=== PATIENT | female | born 1945 | race Caucasian/White ===

== ENCOUNTER 2018-11-13 12:22 | Emergency (ER) | payer OTHER ==
[2018-11-13 12:50] VITALS: BP 159/89; PULSE 51; TEMP 97.4; BMI 24.1
--- NOTE | 2018-11-13 12:54 | PDOC ---
Attending Attestation - Resident Resident Name: MaycolAlanna - ED Attending Attestation I have performed the following: I have examined & evaluated the patient, The case was reviewed & discussed with the resident, I agree w/resident's findings & plan, Exceptions are as noted - HPI HPI: 11/13/18 12:53 72y F presents with insect bites, she was walking and may have stepped onto a hive of some sort, was stung by an flying insect. Pt endorses feeling lightheaded initially and a stinging pain to the sites. denie sany sob, wheezing , voice changes, n/v, lightheadedness. Pt was given benadryl by EMS and fluids. Pt feeling improved currently. No known allergies Exam: General: well appearing NAD ENT: patent airway, no stridor, no swelling PULM: cta b/l CARD: rrr, no mrg abd soft nontender SKIN: approx 2cm x2cm erythemadous wheals without any evidence of stinger on various parts of body (scalp, face, R shoulder, R forwarm, R thigh) Suspect insect bite/sting with mild reaction no signs of anaphyalxis will obtain ekg to screen fora rrythmia if neg will give hydrocorisone for welts and benadryl for itching return precautions were discussed - Medical Decision Making 11/13/18 13:33 ekg noted bradycardic - pt notes she is typically bradycardia bp stable here Heart Score/ECG Review - ECG Impressions Comment:: 11/13/18 13:32 Twelve-lead EKG was performed and reviewed by me. There is normal sinus rhythm with a rate of 49 RBBB
--- NOTE | 2018-11-13 13:25 | PDOC ---
History of Present Illness - General Chief Complaint: Bite Stated Complaint: BITE Time Seen by Provider: 11/13/18 12:48 - History of Present Illness Initial Comments: Smita López is a 72yo woman with no known medical problems who was BIBA with multiple insect bites. She reports that she was out walking the dog when she believes she stepped on the insect next. She is not sure what type of insects they were, but she was stung/bitten several times, mostly on the right side of her body. She felt slightly dizzy following the bites, walked home, and called an ambulance. She denies any SOB or difficulty breathing, chest pain, throat tightness, voice changes, or difficulty swallowing. She was given 50mg diphenhydramine by EMS but was not felt to require any epinephrine at that time. Currently, she states that she feels sleepy but otherwise reports only that she has a slight stinging sensation at the location of the bites. Past History - Past Medical History Allergies/Adverse Reactions: Allergies Allergy/AdvReac Type Severity Reaction Status Date / Time No Known Drug Allergies Allergy Unverified 11/13/18 12:51 Home Medications: Ambulatory Orders Alprazolam [Xanax] 0.25 mg PO HS 04/26/12 Fluoxetine HCl [Prozac -] 20 mg PO HS 04/26/12 Simvastatin 40 mg PO HS 11/13/18 Anemia: No Asthma: No Cancer: No Cardiac Disorders: Yes CVA: No COPD: No CHF: No Dementia: No Diabetes: No GI Disorders: No Disorders: No HTN: No Hypercholesterolemia: Yes Liver Disease: No Seizures: No Thyroid Disease: No - Surgical History Abdominal Surgery: No Appendectomy: No Cardiac Surgery: Yes (REPAIR MITRAL VALVE) Cholecystectomy: No Lung Surgery: No Neurologic Surgery: No Orthopedic Surgery: No - Suicide/Smoking/Psychosocial Hx Smoking History: Unknown if ever smoked Have you smoked in the past 12 months: No Information on smoking cessation initiated: No Hx Alcohol Use: No Drug/Substance Use Hx: No Substance Use Type: Alcohol Hx Substance Use Treatment: No Review of Systems - Review of Systems Comments:: General: No fevers, no chills, no weight or appetite change, no malaise HEENT: No changes in vision, no changes in hearing, no congestion, no sore throat CV: No chest pain, no palpitations, no LE edema Pulm: No SOB, no cough, no wheezing GI: No nausea or vomiting, no change in bowel habits, no melena : No frequency, no urgency, no dysuria Musc: No back pain, no joint swelling, no recent injury Skin: See HPI Endo: No excessive thirst, no heat/cold intolerance Heme: No unusual bruising or bleeding, no swollen glands Neuro: No syncope, no numbness/tingling, no focal weakness Vasc: No claudication Psych: No recent change in mood, no SI or HI *Physical Exam - Vital Signs Last Vital Signs Temp Pulse Resp BP Pulse Ox 97.4 F L 51 L 16 159/89 100 11/13/18 12:25 11/13/18 12:25 11/13/18 12:25 11/13/18 12:25 11/13/18 12:25 - Physical Exam Comments: General: Comfortable, no acute distress HEENT: PERRL, EOMI, MMM, voice normal, normal neck ROM Cards: RRR, no murmur appreciated Pulm: Comfortable on room air, clear to auscultation bilaterally Abd: Soft, nontender, nondistended Ext: Atraumatic. No LE edema. ROM intact. WWP Skin: Distinct wheals c/w insect bites noted on left forearm, right posterior thigh, right upper arm measuring about 2cm in diameter. 1cm wheal on right hand. A few small wheals on lateral right face, one noted on right scalp under hair. No additional rash or lesions appreciated. Neuro: A&Ox3, CN grossly intact, normal speech, motor/sensory grossly intact and symmetric Psych: Mood appropriate to situation Medical Decision Making - Medical Decision Making 11/13/18 13:13 Smita López is a 72yo woman with no known medical problems who was BIBA with multiple insect bites. She denies any wheezing, SOB, throat or voice changes. - No s/s of systemic allergic reaction. Local skin reaction w/ wheals only - Given benadryl already by EMS. No need for additional meds - HDS, pt no longer feels dizzy. Will obtain EKG given report of dizziness following bites/stings - Will most likely d/c home 11/13/18 13:37 - EKG w/ sinus bradycardia, RBBB. - Discussed home care, follow up, return precautions. Will d/c home to follow up with PMD Discussed with Dr Carole Severino PGY2 *DC/Admit/Observation/Transfer Diagnosis at time of Disposition: Insect bites Qualifiers: Encounter type: initial encounter Site of insect bite: unspecified site Qualified Code(s): W57.XXXA - Bitten or stung by nonvenomous insect and other nonvenomous arthropods, initial encounter - Discharge Dispostion Disposition: HOME Condition at time of disposition: Stable Decision to Admit order: No - Referrals Referrals: Bridger Cooney [Primary Care Provider] - - Patient Instructions Printed Discharge Instructions: DI for Insect Bites and Stings Additional Instructions: Discharge Instructions: You were seen in the emergency department following several insect bites/ stings. You showed no signs of serious allergic reaction. You may use diphenhydramine (Benadryl) 25mg every 6 hours as needed for itching. This medication may make you sleepy, so do not drive after taking it. You may use over the counter medications as needed for pain at home. 650-1000mg acetaminophen (Tylenol) or 600mg ibuprofen (Motrin or Advil) can be used every 6 -8 hours. Apply hydrocortisone cream to the affected areas of your skin up to twice daily as needed to reduce inflammation. Call your regular doctor tomorrow morning to schedule a follow up appointment. Seek immediate medical care for any difficulty breathing, wheezing, throat tightness, voice changes or any other medical emergency. - Post Discharge Activity
--- NOTE | 2018-11-14 11:28 | EKG ---
Test Reason : Blood Pressure : / mmHG Vent. Rate : 049 BPM Atrial Rate : 049 BPM P-R Int : 142 ms QRS Dur : 124 ms QT Int : 498 ms P-R-T Axes : 047 -16 -08 degrees QTc Int : 449 ms SINUS BRADYCARDIA RIGHT BUNDLE BRANCH BLOCK ABNORMAL ECG WHEN COMPARED WITH ECG OF 09-NOV-2003 11:48, PREMATURE VENTRICULAR COMPLEXES ARE NO LONGER PRESENT RIGHT BUNDLE BRANCH BLOCK IS NOW PRESENT Confirmed by BRIANNA MELLO, LIZET ([id number]) on 11/14/2018 11:28:49 AM Referred By: Confirmed By:LIZET REED MD
== END 2018-11-13 14:01 | disposition home or self-care (01) ==
LOC: JER 12:22
DX: S00.86XA Insect bite (nonvenomous) of other part of head, initial encounter (principal); S70.361A Insect bite (nonvenomous), right thigh, initial encounter; S40.861A Insect bite (nonvenomous) of right upper arm, initial encounter; S60.561A Insect bite (nonvenomous) of right hand, initial encounter; W57.XXXA Bitten or stung by nonvenomous insect and other nonvenomous arthropods, initial encounter; Y93.K1 Activity, walking an animal; Y92.89 Other specified places as the place of occurrence of the external cause; Y99.8 Other external cause status
CPT/HCPCS: 93005; 93010; 99282-25